=== PATIENT | male | born 1995 | race Two or more races ===

== ENCOUNTER 2019-06-18 11:34 | Emergency (ER) | payer OTHER ==
[~2019-06-18] VITALS: Ht 170.2 cm; Wt 100.0 kg
[2019-06-18 11:45] VITALS: BP 133/98
== END 2019-06-18 12:08 | disposition home or self-care (01) ==
LOC: EMS 11:34
DX: S90.821A Blister (nonthermal), right foot, initial encounter (principal); F41.9 Anxiety disorder, unspecified; F15.90 Other stimulant use, unspecified, uncomplicated; R11.10 Vomiting, unspecified; F11.90 Opioid use, unspecified, uncomplicated; X58.XXXA Exposure to other specified factors, initial encounter; Y93.89 Activity, other specified; Y92.89 Other specified places as the place of occurrence of the external cause; Y99.8 Other external cause status